=== PATIENT | male | born 1965 | race African-American/Black ===

== ENCOUNTER 2022-10-01 12:10 | Inpatient (IN) | payer OTHER ==
[2022-10-01 13:19] VITALS: BMI 28.3
[2022-10-01] MEDS ORDERED: P-EPHED 60MG/TRIPROLIDI 2.5MG TABLET PO PRN (17:58)
[2022-10-01] MEDS ORDERED: POLYETHYLENE GLYCOL (HEALTHYLAX) 3350 17 GM PACKET PO PRN (17:58)
[2022-10-01] MEDS ORDERED: guaiFENesin 200 MG/10 ML 10 ML UNIT-DOSE CUPS PO PRN (17:58)
[2022-10-01] MEDS ORDERED: hydrOXYzine PAMOATE 25 MG CAPSULE (FP) PO PRN (17:58)
[2022-10-01] MEDS ORDERED: MAG HYDROX/AL HYDROX/SIMETH 30 ML UNIT-DOSE CUP PO PRN (17:58)
[2022-10-01] MEDS ORDERED: ACETAMINOPHEN 325 MG TABLET (FP) PO PRN (17:58)
[2022-10-01] MEDS ORDERED: LOPERAMIDE HCL 2 MG CAPSULE PO PRN (17:58)
[2022-10-01] MEDS ORDERED: MAGNESIUM HYDROX 2400MG/30ML ORAL SUSPENSION 30 ML CUP PO PRN (17:58)
[2022-10-01] MEDS ORDERED: BENZOCAINE/MENTHOL (CHLORASEPTIC ) LOZENGE MM PRN (17:58)
[2022-10-01] MEDS ORDERED: NICOTINE 10 MG CARTRIDGE (INHALER) IH PRN (17:58)
[2022-10-01] MEDS ORDERED: IBUPROFEN 400 MG TABLET (FP) PO PRN (17:58)
[2022-10-01] MEDS: MELATONIN 5 MG TABLETS PO SCH (21:08)
[2022-10-01] MEDS: THIAMINE HCL 100 MG TABLET (FP) PO SCH (21:08)
[2022-10-01 23:00] VITALS: RESP 18
[2022-10-02 10:19] LABS: PH,URINE 6.5 (5.0-8.0); URINE APPEARANCE CLEAR; URINE BILIRUBIN NEGATIVE (NEGATIVE); URINE COLOR YELLOW; URINE GLUCOSE (UA) NEGATIVE (NEGATIVE); URINE KETONE NEGATIVE (NEGATIVE); URINE LEUK ESTERASE NEGATIVE (NEGATIVE); URINE NITRITE NEGATIVE (NEGATIVE); URINE PROTEIN NEGATIVE (NEGATIVE); URINE UROBILINOGEN 0.2 mg/dL (0.2-1.0)
[2022-10-02] MEDS: NICOTINE 7 MG/24 HOURS TOPICAL PATCH TD SCH ×2 (10:38→10:44)
[2022-10-02] MEDS: PRENATAL VITAMINS W/ FOLIC ACID TABLET (FP) PO SCH (10:38)
[2022-10-02] MEDS: THIAMINE HCL 100 MG TABLET (FP) PO SCH (21:04)
[2022-10-02] MEDS: DIVALPROEX SODIUM 500 MG TABLET E.C. PO SCH (21:04)
[2022-10-02] MEDS: MELATONIN 5 MG TABLETS PO SCH (21:04)
[2022-10-02] MEDS: OLANZapine 7.5 MG TABLET PO SCH (21:04)
[2022-10-03] MEDS: NICOTINE 7 MG/24 HOURS TOPICAL PATCH TD SCH (10:48)
[2022-10-03] MEDS: DIVALPROEX SODIUM 500 MG TABLET E.C. PO SCH ×2 (10:48→23:48)
[2022-10-03] MEDS: PRENATAL VITAMINS W/ FOLIC ACID TABLET (FP) PO SCH (10:49)
[2022-10-03] MEDS: MELATONIN 5 MG TABLETS PO SCH (23:48)
[2022-10-03] MEDS: THIAMINE HCL 100 MG TABLET (FP) PO SCH (23:49)
[2022-10-03] MEDS: OLANZapine 7.5 MG TABLET PO SCH (23:49)
[2022-10-04] MEDS: PRENATAL VITAMINS W/ FOLIC ACID TABLET (FP) PO SCH (10:09)
[2022-10-04] MEDS: DIVALPROEX SODIUM 500 MG TABLET E.C. PO SCH ×2 (10:10→21:17)
[2022-10-04] MEDS: NICOTINE 7 MG/24 HOURS TOPICAL PATCH TD SCH (10:10)
[2022-10-04] MEDS ORDERED: BENZOCAINE 20 % GEL TUBE MM PRN (10:48)
[2022-10-04] MEDS: THIAMINE HCL 100 MG TABLET (FP) PO SCH (21:17)
[2022-10-04] MEDS: AMOX TR/POT CLAV 500MG/125MG TABLETS (FP) PO SCH (21:18)
[2022-10-04] MEDS: MELATONIN 5 MG TABLETS PO SCH (21:18)
[2022-10-04] MEDS: TOLNAFTATE 1% CREAM 15 GM TUBE TP SCH (21:19)
[2022-10-04] MEDS ORDERED: OLANZapine 2.5 MG TABLET PO SCH (22:00)
[2022-10-05] MEDS: AMOX TR/POT CLAV 500MG/125MG TABLETS (FP) PO SCH (07:37)
[2022-10-05 08:21] VITALS: BP 143/88; PULSE 76; TEMP 97.3
[2022-10-05] MEDS: NICOTINE 7 MG/24 HOURS TOPICAL PATCH TD SCH (09:54)
[2022-10-05] MEDS: PRENATAL VITAMINS W/ FOLIC ACID TABLET (FP) PO SCH (09:54)
[2022-10-05] MEDS: TOLNAFTATE 1% CREAM 15 GM TUBE TP SCH (09:55)
[2022-10-05] MEDS: DIVALPROEX SODIUM 500 MG TABLET E.C. PO SCH (09:56)
[2022-10-05] MEDS ORDERED: OLANZapine 7.5 MG TABLET PO SCH (22:00)
== END 2022-10-05 15:55 | disposition home or self-care (01) | DRG 772 ==
LOC: YASAS 12:10 → Y5N 19:44
PROVIDERS: ADMIT Allergy & Immunology; ATTEND Psychiatry & Neurology Pain Medicine
PROC: HZ42ZZZ Group Counseling for Substance Abuse Treatment, Cognitive-Behavioral (ICD-10-PCS; principal; 2022-10-01)
DX: F10.20 Alcohol dependence, uncomplicated (principal); F14.20 Cocaine dependence, uncomplicated; F17.210 Nicotine dependence, cigarettes, uncomplicated; F31.9 Bipolar disorder, unspecified; F25.9 Schizoaffective disorder, unspecified; F29 Unspecified psychosis not due to a substance or known physiological condition; F41.9 Anxiety disorder, unspecified; F43.10 Post-traumatic stress disorder, unspecified; I10 Essential (primary) hypertension; J45.30 Mild persistent asthma, uncomplicated; B35.3 Tinea pedis; L60.0 Ingrowing nail; K05.10 Chronic gingivitis, plaque induced
CPT/HCPCS: 80164; 81003; C9803-CS; U0003; U0005

== ENCOUNTER 2024-05-23 13:53 | Inpatient (IN) | payer OTHER ==
[2024-05-23 14:38] VITALS: BMI 28.8
[2024-05-23] MEDS ORDERED: DICYCLOMINE HCL 10 MG CAPSULE PO PRN (15:02)
[2024-05-23] MEDS ORDERED: ACETAMINOPHEN 325 MG TABLET (FP) PO PRN (15:02)
[2024-05-23] MEDS ORDERED: ONDANSETRON *ODT* 4 MG TABLET SL PRN (15:02)
[2024-05-23] MEDS ORDERED: METHOCARBAMOL 500 MG TABLET PO PRN (15:02)
[2024-05-23] MEDS ORDERED: IBUPROFEN 400 MG TABLET (FP) PO PRN (15:02)
[2024-05-23] MEDS ORDERED: MAGNESIUM HYDROX 2400MG/30ML ORAL SUSPENSION 30 ML CUP PO PRN (15:02)
[2024-05-23] MEDS ORDERED: LOPERAMIDE HCL 2 MG CAPSULE PO PRN (15:02)
[2024-05-23] MEDS ORDERED: MAG HYDROX/AL HYDROX/SIMETH 30 ML UNIT-DOSE CUP PO PRN (15:02)
[2024-05-23] MEDS ORDERED: NALOXONE (NARCAN) HCL 4 MG/0.1 ML SPRAY NS PRN (15:02)
[2024-05-23] MEDS ORDERED: BENZOCAINE/MENTHOL (CHLORASEPTIC ) LOZENGE MM PRN (15:02)
[2024-05-23] MEDS ORDERED: BISMUTH SUBSALICYLATE 524 MG/30 ML PO PRN (15:02)
[2024-05-23] MEDS ORDERED: NICOTINE POLACRILEX 2 MG GUM BUC PRN (15:02)
[2024-05-23] MEDS ORDERED: chlordiazePOXIDE HCL 25 MG CAPSULE PO PRN (15:02)
[2024-05-23] MEDS ORDERED: guaiFENesin 600 MG TABLET.ER (FP) PO PRN (15:02)
[2024-05-23] MEDS ORDERED: POLYETHYLENE GLYCOL (HEALTHYLAX) 3350 17 GM PACKET PO PRN (15:02)
[2024-05-23] MEDS ORDERED: NALOXONE HCL 0.4 MG/ML VIAL IM PRN (15:02)
[2024-05-23] MEDS ORDERED: IBUPROFEN 600 MG TABLET (FP) PO PRN (15:02)
[2024-05-23] MEDS ORDERED: BENZONATATE 200 MG CAPSULE PO PRN (15:02)
[2024-05-23] MEDS ORDERED: hydrOXYzine PAMOATE 25 MG CAPSULE (FP) PO PRN (15:02)
[2024-05-23] MEDS: chlordiazePOXIDE HCL 25 MG CAPSULE PO SCH (17:20)
[2024-05-23] MEDS: PRENATAL VITAMINS W/ FOLIC ACID TABLET (FP) PO SCH (17:22)
[2024-05-23] MEDS: THIAMINE 100 MG TABLET PO SCH (22:32)
[2024-05-23] MEDS: MELATONIN 5 MG TABLETS PO SCH (22:32)
[2024-05-23] MEDS: ACAMPROSATE CALCIUM 333 MG TABLET.DR PO SCH (22:33)
[2024-05-24 12:22] LABS: HEMATOCRIT 39.2 % (35.4-49); HEMOGLOBIN 12.6 GM/dL (11.7-16.9); MCH 26.8 pg (25.7-33.7); MCHC 32.1 g/dl (32.0-35.9); MEAN CELL VOLUME 83.7 fl (80-96); MEAN PLT VOLUME 9.4 fl (7.5-11.1); PLATELET COUNT 145 10^3/uL (134-434); RBC 4.68 M/mm3 (4.00-5.60); RDW 16.2 % (11.9-15.9); WHITE BLOOD COUNT 8.3 K/mm3 (4.0-10.0)
[2024-05-24] MEDS ORDERED: diazePAM 5 MG TABLET PO PRN (12:24)
[2024-05-24 12:26] LABS: CHLORIDE 106 mmol/L (98-107); POTASSIUM 3.9 mmol/L (3.5-5.1); SODIUM 140 mmol/L (136-145)
[2024-05-24 12:33] LABS: ANION GAP 8 mmol/L (4-13); CO2 26 mmol/L (21-32); GLUCOSE,RANDOM 104 mg/dL (74-106)
[2024-05-24 12:34] LABS: BLOOD UREA NITROGEN 16.8 mg/dL (7-18)
[2024-05-24 12:36] LABS: SGPT/ALT 23 U/L (13-61)
[2024-05-24 12:37] LABS: CREATININE 0.9 mg/dL (0.55-1.3); SGOT/AST 22 U/L (15-37)
[2024-05-24 12:38] LABS: BILIRUBIN,TOTAL 0.5 mg/dL (0.2-1); TOT PROT 6.4 g/dl (6.4-8.2)
[2024-05-24 12:39] LABS: ALK PHOS 135 U/L (45-117)
[2024-05-25] MEDS: chlordiazePOXIDE HCL 25 MG CAPSULE PO SCH (05:37)
[2024-05-25 06:44] VITALS: RESP 16
[2024-05-25 09:16] VITALS: BP 159/95; PULSE 74; TEMP 97.7
[2024-05-26] MEDS ORDERED: chlordiazePOXIDE HCL 10 MG CAPSULE PO PRN
[2024-05-26] MEDS ORDERED: chlordiazePOXIDE HCL 10 MG CAPSULE PO SCH (05:00)
[2024-05-27] MEDS ORDERED: chlordiazePOXIDE HCL 10 MG CAPSULE PO SCH (05:00)
[2024-05-28] MEDS ORDERED: chlordiazePOXIDE HCL 10 MG CAPSULE PO ONE (05:00)
== END 2024-05-25 09:03 | disposition left against medical advice (07) | DRG 770 ==
LOC: YASAS 13:53 → Y6N 16:47
PROVIDERS: ADMIT Allergy & Immunology; ATTEND Surgery
PROC: HZ2ZZZZ Detoxification Services for Substance Abuse Treatment (ICD-10-PCS; principal; 2024-05-23)
DX: F10.230 Alcohol dependence with withdrawal, uncomplicated (principal); F14.10 Cocaine abuse, uncomplicated; F12.10 Cannabis abuse, uncomplicated; F17.210 Nicotine dependence, cigarettes, uncomplicated; F31.9 Bipolar disorder, unspecified; F25.9 Schizoaffective disorder, unspecified; F19.282 Other psychoactive substance dependence with psychoactive substance-induced sleep disorder; F19.24 Other psychoactive substance dependence with psychoactive substance-induced mood disorder; F41.9 Anxiety disorder, unspecified; I10 Essential (primary) hypertension; J45.30 Mild persistent asthma, uncomplicated; M54.30 Sciatica, unspecified side; Z86.79 Personal history of other diseases of the circulatory system
CPT/HCPCS: 36415; 80053; 80305; 80307; 85027; 86780; 93005; 93010